=== PATIENT | male | born 1970 | race African-American/Black ===

== ENCOUNTER 2024-07-11 09:16 | Inpatient (IN) | payer OTHER ==
[2024-07-11 09:23] VITALS: BMI 29.9
[2024-07-11] MEDS: diazePAM CARPU-JECT 10 MG/2 ML DISP.SYRIN IVPUSH ONE (10:33)
[2024-07-11 10:41] LABS: BASO % 1.6 % (0-2.0); EOS % 1.1 % (0-4.5); HEMOGLOBIN 12.6 GM/dL (11.7-16.9); MCH 32.2 pg (25.7-33.7); MCHC 33.9 g/dl (32.0-35.9); MEAN CELL VOLUME 94.9 fl (80-96); MEAN PLT VOLUME 8.7 fl (7.5-11.1); MONO % 10.7 % (3.8-10.2); NEUT % 35.6 % (42.8-82.8); PLATELET COUNT 230 10^3/uL (134-434); RDW 13.3 % (11.9-15.9); WHITE BLOOD COUNT 3.3 K/mm3 (4.0-10.0)
[2024-07-11 10:48] LABS: INR 1.15 (0.83-1.09); PROTHROMBIN TIME (PATIENT) 12.9 SEC (9.7-13.0)
[2024-07-11 10:51] LABS: ACTIVATED PTT 30.7 SECONDS (25.2-36.5)
[2024-07-11] MEDS: SODIUM CHLORIDE 1,000 ML IV SCH ×3 (11:04→14:40)
[2024-07-11 11:09] LABS: POTASSIUM 4.1 mmol/L (3.5-5.1)
[2024-07-11 11:11] LABS: ALBUMIN 3.3 g/dl (3.4-5.0); CALCIUM 8.9 mg/dL (8.5-10.1)
[2024-07-11 11:13] LABS: BLOOD UREA NITROGEN 16.7 mg/dL (7-18)
[2024-07-11 11:15] LABS: CREATININE 1.3 mg/dL (0.55-1.3)
[2024-07-11 11:16] LABS: TOT PROT 9.3 g/dl (6.4-8.2)
[2024-07-11 11:17] LABS: BILIRUBIN,TOTAL 0.4 mg/dL (0.2-1)
[2024-07-11] MEDS: ASPIRIN 81 MG CHEWABLE TABLETS PO ONE (13:24)
[2024-07-11] MEDS ORDERED: ATORVASTATIN CA 40 MG TABLET (FP) ONE (19:05)
[2024-07-11] MEDS: ATORVASTATIN CA 40 MG TABLET (FP) PO SCH (19:07)
[2024-07-11] MEDS: HEPARIN NA (PORCINE) 5,000 UNITS/ML 1ML VIAL SQ SCH (22:23)
[2024-07-11] MEDS: QUEtiapine FUMARATE 100 MG TABLET (FP) PO SCH (22:26)
[2024-07-11] MEDS: MIRTAZAPINE 15 MG TABLET (FP) PO SCH (22:26)
[2024-07-12 09:38] LABS: HEMATOCRIT 36.8 % (35.4-49); HEMOGLOBIN 12.3 GM/dL (11.7-16.9); MCH 31.9 pg (25.7-33.7); MCHC 33.3 g/dl (32.0-35.9); MEAN CELL VOLUME 95.9 fl (80-96); MEAN PLT VOLUME 9.2 fl (7.5-11.1); PLATELET COUNT 214 10^3/uL (134-434); RBC 3.84 M/mm3 (4.00-5.60); RDW 13.4 % (11.9-15.9); WHITE BLOOD COUNT 3.3 K/mm3 (4.0-10.0)
[2024-07-12 09:52] LABS: POTASSIUM 4.7 mmol/L (3.5-5.1)
[2024-07-12 10:11] LABS: CALCIUM 8.8 mg/dL (8.5-10.1)
[2024-07-12 10:12] LABS: BLOOD UREA NITROGEN 21.3 mg/dL (7-18)
[2024-07-12 10:15] LABS: CREATININE 1.5 mg/dL (0.55-1.3)
[2024-07-12 10:16] LABS: BILIRUBIN,TOTAL 0.5 mg/dL (0.2-1); TOT PROT 8.4 g/dl (6.4-8.2)
[2024-07-12 10:37] LABS: ANISOCYTOSIS 0; MACROCYTOSIS 0
[2024-07-12] MEDS: ASPIRIN 325 MG TABLET PO SCH (10:38)
[2024-07-12] MEDS: GABAPENTIN 400 MG CAPSULE PO PRN (10:40)
[2024-07-12] MEDS ORDERED: ASPIRIN COATED 81 MG TABLET.EC PO ONE (11:28)
[2024-07-12] MEDS: QUEtiapine FUMARATE 100 MG TABLET (FP) PO ONE (13:25)
[2024-07-12] MEDS: BICTEGRAV/EMTRICIT/TENOFOV (BIKTARVY) 50-200-25 MG TABLET PO SCH (13:39)
[2024-07-12 18:13] LABS: PH,URINE 7.5 (5.0-8.0); URINE APPEARANCE CLEAR; URINE BILIRUBIN NEGATIVE (NEGATIVE); URINE COLOR YELLOW; URINE GLUCOSE (UA) NEGATIVE (NEGATIVE); URINE KETONE NEGATIVE (NEGATIVE); URINE LEUK ESTERASE NEGATIVE (NEGATIVE); URINE NITRITE NEGATIVE (NEGATIVE); URINE PROTEIN NEGATIVE (NEGATIVE)
[2024-07-12] MEDS: ALPRAZolam 1 MG TABLET PO PRN (21:01)
[2024-07-13] MEDS: ALPRAZolam 1 MG TABLET PO PRN (11:06)
[2024-07-13] MEDS: ALPRAZolam 1 MG TABLET PO ONE (18:22)
[2024-07-13] MEDS: MIRTAZAPINE 15 MG TABLET (FP) PO SCH (21:16)
[2024-07-14] MEDS: ALPRAZolam 1 MG TABLET PO PRN (06:06)
[2024-07-14 07:48] LABS: HEMATOCRIT 37.5 % (35.4-49); HEMOGLOBIN 12.5 GM/dL (11.7-16.9); MCHC 33.2 g/dl (32.0-35.9); MEAN CELL VOLUME 96.1 fl (80-96); MEAN PLT VOLUME 8.8 fl (7.5-11.1); PLATELET COUNT 207 10^3/uL (134-434); RDW 13.4 % (11.9-15.9); WHITE BLOOD COUNT 2.9 K/mm3 (4.0-10.0)
[2024-07-14 08:25] LABS: BLOOD UREA NITROGEN 18.4 mg/dL (7-18); CALCIUM 8.9 mg/dL (8.5-10.1)
[2024-07-14 08:27] LABS: CREATININE 1.5 mg/dL (0.55-1.3)
[2024-07-14 08:28] LABS: BILIRUBIN,TOTAL 0.4 mg/dL (0.2-1); PHOSPHOROUS 3.7 mg/dL (2.5-4.9); TOT PROT 8.6 g/dl (6.4-8.2)
[2024-07-14] MEDS: NITROGLYCERIN SUBLINGUAL 1/150 0.4 MG TAB SL ONE (17:51)
[2024-07-14] MEDS: NITROGLYCERIN SUBLINGUAL 1/200 0.3 MG BTL SL ONE (17:54)
[2024-07-14] MEDS: SODIUM CHLORIDE 0.45% 1,000 ML IV SCH (19:09)
[2024-07-15 07:59] LABS: HEMATOCRIT 35.7 % (35.4-49); HEMOGLOBIN 12.2 GM/dL (11.7-16.9); MCH 32.6 pg (25.7-33.7); MCHC 34.3 g/dl (32.0-35.9); MEAN PLT VOLUME 8.8 fl (7.5-11.1); PLATELET COUNT 209 10^3/uL (134-434); RBC 3.76 M/mm3 (4.00-5.60); RDW 13.7 % (11.9-15.9); WHITE BLOOD COUNT 3.6 K/mm3 (4.0-10.0)
[2024-07-15 08:15] LABS: POTASSIUM 3.8 mmol/L (3.5-5.1)
[2024-07-15 08:25] LABS: BLOOD UREA NITROGEN 19.1 mg/dL (7-18)
[2024-07-15 08:28] LABS: CALCIUM 8.6 mg/dL (8.5-10.1)
[2024-07-15 08:29] LABS: ALBUMIN 2.9 g/dl (3.4-5.0); MAGNESIUM 1.9 mg/dL (1.8-2.4)
[2024-07-15 08:32] LABS: CREATININE 1.5 mg/dL (0.55-1.3)
[2024-07-15 08:33] LABS: BILIRUBIN,TOTAL 0.3 mg/dL (0.2-1)
[2024-07-15 08:34] LABS: TOT PROT 8.4 g/dl (6.4-8.2)
[2024-07-15] MEDS: ASPIRIN COATED 81 MG TABLET.EC PO SCH (09:38)
[2024-07-15 09:48] VITALS: BP 122/60; PULSE 76; RESP 16; TEMP 98.2
== END 2024-07-15 13:44 | disposition left against medical advice (07) | DRG 755 ==
LOC: JER 09:16 → JERBED 11:48 → OBSVTOIN 13:55 → EDBD 13:55 → JERBED 13:55 → J4S 21:48
PROVIDERS: ADMIT Internal Medicine; ATTEND Internal Medicine
DX: F45.9 Somatoform disorder, unspecified (principal); D70.9 Neutropenia, unspecified; G62.9 Polyneuropathy, unspecified; G81.94 Hemiplegia, unspecified affecting left nondominant side; F41.9 Anxiety disorder, unspecified; Z21 Asymptomatic human immunodeficiency virus [HIV] infection status; K21.9 Gastro-esophageal reflux disease without esophagitis; I10 Essential (primary) hypertension; F31.9 Bipolar disorder, unspecified
CPT/HCPCS: 36415; 70551-TC; 72131-TC; 72170-TC-FY; 80048; 80053; 80061; 81003; 82550; 82553; 82962; 83036; 83735; 84100; 84155; 84165; 84439; 84443; 84484; 85025; 85027; 85610; 85730; 86359; 86360; 93005; 93010; 93306-TC; 93880-TC; 97116-GP; 97161-GP; 99285-25; G0378; J1644